=== PATIENT | female | born 1990 | race Caucasian/White ===

== ENCOUNTER → 2020-01-22 | Outpatient (CLI) | payer OTHER ==
[~2020-01-22] MED LIST: NO HOME MEDICATIONS
== END ==
LOC: COL.RAD 09:22
DX: R51 Headache (principal)

== ENCOUNTER 2020-02-12 08:39 | Emergency (ER) | payer OTHER ==
[~2020-02-12] VITALS: Ht 162.6 cm; Wt 72.7 kg
[2020-02-12 08:46] VITALS: TEMP 98.3
[2020-02-12] MEDS ORDERED: AMOXICILLIN 8751 TAB PO (09:22)
[2020-02-12] MEDS ORDERED: NORCO 325 MG-51 TAB PO (09:22)
[2020-02-12 10:11] VITALS: BP 122/78; PULSE 79
== END 2020-02-12 10:10 ==
LOC: COL.ER 08:39
DX: L05.01 Pilonidal cyst with abscess (principal)

== ENCOUNTER 2021-02-09 14:27 | Emergency (ER) | payer OTHER ==
[~2021-02-09] VITALS: Ht 162.6 cm; Wt 84.1 kg
[~2021-02-09 14:27] MED LIST changes: +AMOXICILLIN 8751 TAB PO; +NORCO 325 MG-51 TAB PO
[2021-02-09 14:49] VITALS: BP 123/87; PULSE 111; TEMP 98.5
[2021-02-09] MEDS ORDERED: DIAMOX 250MG250 MG PO (14:59)
[2021-02-09] MEDS ORDERED: ZYRTEC 10MG10 MG PO (15:00)
[2021-02-09] MEDS ORDERED: D3-5050000 IU PO (15:01)
[2021-02-09] MEDS ORDERED: CYMBALTA 60MG60 MG PO (15:02)
[2021-02-09] MEDS ORDERED: EPIPEN 2-PAK1 MG/ML IM (15:03)
[2021-02-09] MEDS ORDERED: NEURONTIN300 MG/CAP PO (15:04)
[2021-02-09] MEDS ORDERED: REMERON30 MG PO (15:04)
[2021-02-09] MEDS ORDERED: UBRELVY50 MG PO (15:05)
[2021-02-09] MEDS ORDERED: NEXPLANON68 MG (15:06)
[2021-02-09] MEDS ORDERED: CENTRUM1 TA1 PO (15:07)
[2021-02-09] MEDS ORDERED: BACTRIM DS 8001 TAB PO (15:56)
== END 2021-02-09 16:35 | disposition home or self-care (01) ==
LOC: COL.ER 14:27
DX: L05.01 Pilonidal cyst with abscess (principal)